=== PATIENT | male | born 1975 | race Caucasian/White ===

== ENCOUNTER 2017-01-06 21:29 | Emergency (ER) | payer OTHER ==
[2017-01-06 22:22] LABS: HEMOGLOBIN 15.4 gm/dl (14.0-17.5); RED BLOOD COUNT 4.95 M/UL (4.20-5.50); WHITE BLOOD COUNT 9.3 K/UL (4.5-11.0)
[2017-01-06 22:45] LABS: BUN/CREATININE RATIO 10 (0-10)
== END 2017-01-07 01:52 | disposition home or self-care (01) ==
LOC: ER1 21:29
PROVIDERS: Student in an Organized Health Care Education/Training Program
DX: J32.9 Chronic sinusitis, unspecified (principal); J45.909 Unspecified asthma, uncomplicated; Z79.899 Other long term (current) drug therapy; M54.9 Dorsalgia, unspecified; M25.519 Pain in unspecified shoulder; G89.29 Other chronic pain
CPT/HCPCS: 36415; 70450; 71010; 80053; 81001; 82550; 82553; 83690; 83874; 84484; 85025; 85610; 85730; 93005; 96361; 96374; 96375; 96376; 99284; J1200; J2270; J2405; J2765

== ENCOUNTER 2017-01-12 14:58 | Emergency (ER) | payer OTHER ==
[2017-01-12 16:39] LABS: HEMOGLOBIN 15.6 gm/dl (14.0-17.5); RED BLOOD COUNT 5.09 M/UL (4.20-5.50); WHITE BLOOD COUNT 13.2 K/UL (4.5-11.0)
[2017-01-12 16:54] LABS: BUN/CREATININE RATIO 14 (0-10)
== END 2017-01-12 18:45 | disposition home or self-care (01) ==
LOC: ER1 14:58
PROVIDERS: Emergency Medicine
DX: M51.26 Other intervertebral disc displacement, lumbar region (principal); R11.0 Nausea
CPT/HCPCS: 36415; 72131; 80053; 82150; 83690; 85025; 86140; 96374; 96375; 99284; J2270; J2405; J3360

== ENCOUNTER → 2021-01-17 | Outpatient (CLI) | payer OTHER ==
[~2021-01-17] MED LIST: BENTYL 20MG TAB20 MG PO; CITRATE OF MAG296 ML PO; IBUPROFEN600 MG PO; NAPROSYN500 MG PO; PREDNISONE 50 M50 MG PO; ZOFRAN ODT 4 MG4 MG PO
== END ==
LOC: KOH-I 10:42
DX: R20.0 Anesthesia of skin (principal)
CPT/HCPCS: 72100

== ENCOUNTER 2021-03-23 22:00 | Emergency (ER) | payer OTHER | END 2021-03-24 02:40 | disposition home or self-care (01) | LOC: ER1 22:00 | DX: R51.9 Headache, unspecified (principal); J45.909 Unspecified asthma, uncomplicated | CPT/HCPCS: 70450; 99284; J1100; J1200; J1885; J2405 ==

== ENCOUNTER 2021-04-06 18:52 | Emergency (ER) | payer OTHER ==
[2021-04-06 21:15] LABS: HEMOGLOBIN 14.6 gm/dl (14.0-17.5); RED BLOOD COUNT 4.9 M/UL (4.20-5.50); WHITE BLOOD COUNT 7.6 K/UL (4.5-11.0)
[2021-04-06 21:36] LABS: BUN/CREATININE RATIO 9 (0-10)
== END 2021-04-07 02:20 | disposition home or self-care (01) ==
LOC: ER1 18:52
PROVIDERS: Physician Assistant
DX: R51.9 Headache, unspecified (principal); R06.00 Dyspnea, unspecified; J02.9 Acute pharyngitis, unspecified; J45.909 Unspecified asthma, uncomplicated; K21.9 Gastro-esophageal reflux disease without esophagitis
CPT/HCPCS: 71045; 80053; 84439; 84443; 85025; 85652; 86140; 87081; 87880; 99285